=== PATIENT | female | born 1995 | race Caucasian/White ===

== ENCOUNTER 2018-02-13 09:08 | Emergency (ER) | payer OTHER ==
[2018-02-13 09:20] VITALS: BP 103/56; PULSE 94; TEMP 97.8; BMI 20.6
[2018-02-13] MEDS ORDERED: RANITIDINE HCL 150 MG TABLET (FP) PO ONE (10:03)
[2018-02-13] MEDS ORDERED: MAG HYDROX/AL HYDROX/SIMETH 30 ML UNIT-DOSE CUP PO ONE (10:03)
[2018-02-13] MEDS ORDERED: RANITIDINE HCL 150 MG TABLET (FP) ONE (10:07)
[2018-02-13] MEDS ORDERED: MAG HYDROX/AL HYDROX/SIMETH 30 ML UNIT-DOSE CUP ONE (10:08)
[2018-02-13 10:18] LABS: URINE APPEARANCE SLCLOUDY; URINE BILIRUBIN NEGATIVE (<2.0 mg/dL); URINE COLOR YELLOW; URINE GLUCOSE (UA) NEGATIVE (NEGATIVE); URINE KETONE 1+ (NEGATIVE); URINE LEUK ESTERASE TRACE (NEGATIVE); URINE NITRITE NEGATIVE (NEGATIVE); URINE UROBILINOGEN 4.0 E.U/dl mg/dL (0.2-1.0)
[2018-02-13 10:19] LABS: URINE PROTEIN 1+ (NEGATIVE)
[2018-02-13 10:26] LABS: HCG,QUALITATIVE URINE Negative
[2018-02-13 10:27] LABS: EPI CELLS FEW /HPF (FEW); URINE BACTERIA MANY /hpf (NONE SEEN); URINE HYALINE CAST 2 /lpf; URINE MUCUS MANY
--- NOTE | 2018-02-13 10:35 | PDOC ---
History of Present Illness - General Chief Complaint: Nausea Stated Complaint: ABD PAIN Time Seen by Provider: 02/13/18 09:58 History Source: Patient Exam Limitations: No Limitations - History of Present Illness Travel History: No Initial Comments: 02/13/18 10:30 22 yr female with c/o mid abd pain after eating meal with butter last night, neg nvd neg fever, pt has had this pain before, no back pain . pt denies urinary complaints LMP 3 weeks ago. Past History - Past Medical History Allergies/Adverse Reactions: Allergies Allergy/AdvReac Type Severity Reaction Status Date / Time No Known Allergies Allergy Verified 02/13/18 09:50 Home Medications: Ambulatory Orders Famotidine 20 mg PO DAILY #14 tablet 02/13/18 COPD: No DVT: No GI Disorders: Yes (SIGMOID VULVULUS) - Surgical History Abdominal Surgery: Yes (colectomy 2016) - Immunization History Immunization Up to Date: Yes - Suicide/Smoking/Psychosocial Hx Smoking History: Never smoked Have you smoked in the past 12 months: No Number of Cigarettes Smoked Daily: 0 Hx Alcohol Use: No Drug/Substance Use Hx: No Substance Use Type: None Hx Substance Use Treatment: No Review of Systems - Review of Systems Able to Perform ROS?: Yes Is the patient limited Romanian proficient: No Constitutional: No: Symptoms Reported, Unintentional Wgt. Loss HEENTM: No: Symptoms Reported Respiratory: No: Symptoms reported Cardiac (ROS): No: Symptoms Reported ABD/GI: Yes: Symptoms Reported. No: Abdominal Distended, Constipated, Diarrhea , Difficulty Swallowing, Nausea, Poor Appetite, Vomiting, Indigestion, Abdominal cramping : No: Symptoms Reported Musculoskeletal: No: Symptoms Reported *Physical Exam - Vital Signs Last Vital Signs Temp Pulse Resp BP Pulse Ox 97.8 F 94 H 16 103/56 L 99 02/13/18 09:15 02/13/18 09:15 02/13/18 09:15 02/13/18 09:15 02/13/18 09:15 - Physical Exam General Appearance: Yes: Nourished, Appropriately Dressed HEENT: positive: EOMI, MURRAY Neck: positive: Supple. negative: Tender Respiratory/Chest: positive: Lungs Clear, Normal Breath Sounds Cardiovascular: positive: Regular Rhythm, Regular Rate Gastrointestinal/Abdominal: positive: Normal Bowel Sounds, Soft. negative: Tender Lymphatic: negative: Adenopathy Musculoskeletal: positive: Normal Inspection Extremity: positive: Normal Capillary Refill, Normal Inspection, Normal Range of Motion Integumentary: positive: Normal Color, Dry, Warm Neurologic: positive: Fully Oriented, Alert, Normal Mood/Affect, Normal Response , Motor Strength 09/24 ED Treatment Course - ADDITIONAL ORDERS Additional order review: Laboratory Results 02/13/18 10:03 Urine Color Yellow Urine Appearance Slcloudy Urine pH 6.0 Ur Specific [place] 1.026 Urine Protein 1+ H Urine Glucose (UA) Negative Urine Ketones 1+ H Urine Blood 1+ H Urine Nitrite Negative Urine Bilirubin Negative Urine Urobilinogen 4.0 e.u/dl H Ur Leukocyte Esterase Trace Urine WBC (Auto) 17 Urine RBC (Auto) <1 Ur Epithelial Cells Few Urine Bacteria Many Hyaline Casts 2 Urine Mucus Many Urine HCG, Qual Negative - Medications Given in the ED: ED Medications Discontinued Medications Generic Name Dose Route Start Last Admin Trade Name Francoq PRN Reason Stop Dose Admin Al Hydroxide/Mg Hydroxide 30 ml 02/13/18 10:03 02/13/18 10:08 Mylanta Oral Suspension - PO 02/13/18 10:04 30 ml ONCE ONE Administration Ranitidine HCl 300 mg 02/13/18 10:03 02/13/18 10:08 Zantac - PO 02/13/18 10:04 300 mg ONCE ONE Administration Medical Decision Making - Medical Decision Making 02/13/18 10:31 cc: mid abd pain on and off for a few months had last night as well no meds taken [employer] no fever well appearing no distress abd non tender on exam pt states pain has occurred on and off in the past ususally goes away on own or after drinking water, pain resolves will check UA maalox and zantac 02/13/18 10:35 UA negative will dc home with supportive care and strict follow up with GI 02/13/18 10:36 *DC/Admit/Observation/Transfer Diagnosis at time of Disposition: Gastritis Qualifiers: Gastritis type: other gastritis Chronicity: acute Gastritis bleeding: without bleeding Qualified Code(s): K29.00 - Acute gastritis without bleeding - Discharge Dispostion Disposition: HOME Condition at time of disposition: Good - Prescriptions Prescriptions: Famotidine 20 mg PO DAILY #14 tablet - Referrals Referrals: Margaret Fay MD [Staff Physician] - - Patient Instructions Additional Instructions: follow with the rehab specialist for follow up bland diet as tolerated plain rice, bananas, toast applesauce avoid fatty or spicy foods take the pepcid daily return if any worsening symptoms - Post Discharge Activity
== END 2018-02-13 10:46 | disposition home or self-care (01) ==
LOC: JERFT 09:08
DX: K29.70 Gastritis, unspecified, without bleeding (principal)
CPT/HCPCS: 81003; 81015; 84703; 99281-25

== ENCOUNTER 2018-03-23 21:28 | Emergency (ER) | payer OTHER ==
[2018-03-23 21:33] VITALS: TEMP 99.5; BMI 21.1
[2018-03-23] MEDS ORDERED: IBUPROFEN 400 MG TABLET (FP) PO ONE ×2 (22:21→22:44)
[2018-03-23 22:38] LABS: BASO % 0.6 % (0-2.0); HEMATOCRIT 40.9 % (32.4-45.2); HEMOGLOBIN 13.6 GM/dL (10.7-15.3); LYMPH % 11.9 % (8-40); MCHC 33.1 g/dl (32.0-36.0); MEAN CELL VOLUME 90.7 fl (80-96); MEAN PLT VOLUME 9.7 fl (7.5-11.1); MONO % 7.2 % (3.8-10.2); NEUT % 80.3 % (42.8-82.8); PLATELET COUNT 229 K/MM3 (134-434); RBC 4.51 M/mm3 (3.60-5.2); RDW 12.3 % (11.6-15.6); WHITE BLOOD COUNT 12.5 K/mm3 (4.0-10.0)
--- NOTE | 2018-03-23 22:38 | PDOC ---
History of Present Illness - General Chief Complaint: Cold Symptoms Stated Complaint: COLD SYMPTOMS Time Seen by Provider: 03/23/18 21:53 History Source: Patient, Old Records Exam Limitations: No Limitations - History of Present Illness Travel History: No Initial Comments: 03/23/18 22:55 HISTORY OF PRESENT ILLNESS: 22-year-old female with past medical history of sigmoid volvulus status post surgical reduction 2016, who presents emergency Department with 1 week of fevers, sore throat and abdominal pain. Patient reports the pain is different than her volvulus. Patient states she's been taking Tylenol to help with the pain which is had good relief of symptoms. Patient denies any dizziness, blurry vision, chest pain, shortness of breath, nausea, vomiting, diarrhea, dysuria, vaginal discharge or vaginal bleeding. No recent travel or sick contacts. PAST MEDICAL HISTORY: see hpi SURGICAL HISTORY: see hpi ALLERGIES: No known drug allergies REVIEW OF SYSTEMS General/Constitutional: +fever. Denies chills. Denies weakness, weight change. HEENT: Denies change in vision. Denies ear pain or discharge. +sore throat. Cardiovascular: Denies chest pain or shortness of breath. Respiratory: Denies cough, wheezing, or hemoptysis. Gastrointestinal: Denies nausea, vomiting, diarrhea or constipation. Denies rectal bleeding. Genitourinary: Denies dysuria, frequency, or change in urination. Musculoskeletal: Denies joint or muscle swelling or pain. Denies neck or back pain. Skin and breasts: Denies rash or easy bruising. Neurologic: Bitemporal headache. Denies vertigo, loss of consciousness, or loss of sensation. Psychiatric: Denies depression or anxiety. Endocrine: Denies increased thirst. Denies abnormal weight change. Hematologic/Lymphatic: Denies anemia, easy bleeding, or history of blood clots. Allergic/Immunologic: Denies hives or skin allergy. Denies latex allergy. PHYSICAL EXAM General Appearance: Well-appearing, appropriately dressed. No apparent distress , no intoxication. HEENT: EOMI, PERRLA, normal ENT inspection, normal voice, TMs normal, pharynx normal. No conjunctival pallor. No photophobia, scleral icterus. Neck: Supple. Trachea midline. No tenderness, rigidity, carotid bruit, stridor , lymphadenopathy, or thyromegaly. Respiratory/Chest: Lungs CTAB. No shortness of breath, chest tenderness, respiratory distress, accessory muscle use. No crackles, rales, rhonchi, stridor , wheezing, dullness Cardiovascular: Tachycardic regular rhythm. S1, S2. No JVD, murmur, bradycardia. Vascular Pulses: Dorsalis-Pedis (R): 2+, Dorsalis-Pedis (L): 2+ Gastrointestinal/Abdominal: Normal bowel sounds. Abdomen soft, non-distended. RLQ tenderness. No rebound tenderness. No organomegaly, pulsatile mass, guarding , hernia, hepatomegaly, splenomegaly. Lymphatic: No adenopathy, tenderness. Musculoskeletal/Extremities: Normal inspection. FROM of all extremities, normal capillary refill. Pelvis Stable. No CVA tenderness. No tenderness to extremities, pedal edema, swelling, erythema or deformity. Integumentary: Appropriate color, dry, warm. No cyanosis, erythema, jaundice or rash Neurologic: biomedical photographer II-XII intact. Fully oriented, alert. Appropriate mood/affect. Motor strength 5/5. No appreciable EOM palsy, facial droop or sensory deficit. Past History - Past Medical History Allergies/Adverse Reactions: Allergies Allergy/AdvReac Type Severity Reaction Status Date / Time No Known Allergies Allergy Verified 03/23/18 21:32 Home Medications: Ambulatory Orders Famotidine 20 mg PO DAILY #14 tablet 02/13/18 Cephalexin Monohydrate [Keflex -] 500 mg PO BID #14 capsule 03/24/18 COPD: No DVT: No GI Disorders: Yes (SIGMOID VULVULUS) - Surgical History Abdominal Surgery: Yes (colectomy 2016) - Immunization History Immunization Up to Date: Yes - Suicide/Smoking/Psychosocial Hx Smoking History: Never smoked Have you smoked in the past 12 months: No Number of Cigarettes Smoked Daily: 0 Hx Alcohol Use: No Drug/Substance Use Hx: No Substance Use Type: None Hx Substance Use Treatment: No *Physical Exam - Vital Signs Last Vital Signs Temp Pulse Resp BP Pulse Ox 99.5 F 110 H 18 122/73 99 03/23/18 21:30 03/23/18 21:30 03/23/18 21:30 03/23/18 21:30 03/23/18 21:30 ED Treatment Course - LABORATORY CBC & Chemistry Diagram: 03/23/18 22:21 03/23/18 22:21 - ADDITIONAL ORDERS Additional order review: 03/23/18 21:50 Influenza Types A,B Antigen - Final Nasopharyngeal Swab - Final Medical Decision Making - Medical Decision Making 03/23/18 23:04 A/P: 22-year-old female with 1 week of fevers, sore throat and abdominal pain Oropharynx clear without erythema, lesions or exudates Regular tachycardic rhythm. S1 and S2 present. No murmur, rub or gallop noted Abdomen soft nondistended Right lower quadrant tenderness. No rebound tenderness noted. Right lower quadrant guarding present DDX: Volvulus, appendicitis, streptococcal infection, sepsis, UTI, TOA Labs, urine, CAT scan, EKG, chest x-ray Motrin 800 mg orally now 03/24/18 01:03 CT as read by imaging transformation specialist: No bowel obstruction, colitis, free fluid or free air. Normal appendix containing air. Unremarkable pancreas, kidneys and gallbladder. Chest x-rays read by me: Cardiac silhouette is within normal limits. Angles clear. No focal infiltrates or consolidations noted. EKG: Sinus tachycardia rate of 115. Normal intervals noted. No skin changes present Laboratory testing reveals a WBC of 12.5. Urinalysis with 3+ leuk esterase and 112 WBCs. Rare epithelial cells. Lactic acid is 0.6. The patient dose of Rocephin here and to continue on Keflex as outpatient. *DC/Admit/Observation/Transfer Diagnosis at time of Disposition: UTI (urinary tract infection) Qualifiers: Urinary tract infection type: acute cystitis Hematuria presence: without hematuria Qualified Code(s): N30.00 - Acute cystitis without hematuria - Discharge Dispostion Disposition: HOME Condition at time of disposition: Stable Decision to Admit order: No - Prescriptions Prescriptions: Cephalexin Monohydrate [Keflex -] 500 mg PO BID #14 capsule - Referrals - Patient Instructions Additional Instructions: Rest, drink lots of fluids: Teas, water, soups Avoid contact with others until fevers and symptoms resolved Lots of handwashing and good hygiene Continue [id number] medications for symptomatic relief Tylenol or Motrin for fever and pain Continue all of antibiotics until completed Followup with private physician in one week for repeat urinalysis/reevaluation Return to emergency department for worsened symptoms, fevers, dehydration - Post Discharge Activity
[2018-03-23] MEDS ORDERED: SODIUM CHLORIDE 1,728 ML IV ONE (22:50)
[2018-03-23 23:03] LABS: ALBUMIN 4.1 g/dl (3.4-5.0); ALK PHOS 81 U/L (45-117); ANION GAP 8 MMOL/L (8-16); BLOOD UREA NITROGEN 7 mg/dL (7-18); CALCIUM 9.1 mg/dL (8.5-10.1); CHLORIDE 102 mmol/L (98-107); CO2 26 mmol/L (21-32); CREATININE 0.8 mg/dL (0.55-1.3); GLUCOSE,RANDOM 95 mg/dL (74-106); POTASSIUM 4.2 mmol/L (3.5-5.1); SGOT/AST 22 U/L (15-37); SGPT/ALT 20 U/L (13-61); SODIUM 136 mmol/L (136-145); TOT PROT 7.4 g/dl (6.4-8.2)
[2018-03-23 23:07] LABS: INR 1.3 (0.83-1.09); PROTHROMBIN TIME (PATIENT) 15.4 SEC (9.7-13.0)
[2018-03-23 23:13] LABS: URINE APPEARANCE SLCLOUDY; URINE BILIRUBIN NEGATIVE (<2.0 mg/dL); URINE COLOR LTYELLOW; URINE GLUCOSE (UA) NEGATIVE (NEGATIVE); URINE KETONE NEGATIVE (NEGATIVE); URINE LEUK ESTERASE 3+ (NEGATIVE); URINE NITRITE POSITIVE (NEGATIVE); URINE PROTEIN 1+ (NEGATIVE); URINE UROBILINOGEN NEGATIVE mg/dL (0.2-1.0)
[2018-03-23 23:21] LABS: HCG,QUALITATIVE URINE Negative
[2018-03-23 23:25] LABS: VENOUS PH 7.43 (7.32-7.42)
[2018-03-23 23:26] LABS: VENOUS PC02 38.8 mmHg (38-52); VENOUS PO2 19.4 mmHg (28-48)
[2018-03-23 23:28] LABS: EPI CELLS RARE /HPF (FEW)
[2018-03-23] MEDS ORDERED: CEFTRIAXONE 1,000 MG in DEXTROSE 5%-WATER - 50 ML IVPB ONE (23:37)
[2018-03-23] MEDS ORDERED: CEFTRIAXONE 1 GM/50 ML BAG ONE (23:45)
[2018-03-24 01:22] VITALS: BP 93/44; PULSE 96
--- NOTE | 2018-03-24 10:47 | EKG ---
Test Reason : Blood Pressure : / mmHG Vent. Rate : 115 BPM Atrial Rate : 115 BPM P-R Int : 130 ms QRS Dur : 084 ms QT Int : 318 ms P-R-T Axes : 053 052 024 degrees QTc Int : 439 ms SINUS TACHYCARDIA NO PREVIOUS ECGS AVAILABLE Confirmed by THA STONE MD ([id number]) on 03/24/2018 10:46:53 AM Referred By: Confirmed By:THA STONE MD
== END 2018-03-24 01:56 | disposition home or self-care (01) ==
LOC: JER 21:28
PROC: 3E0337Z Introduction of Electrolytic and Water Balance Substance into Peripheral Vein, Percutaneous Approach (ICD-10-PCS; principal; 2018-03-23)
PROC: 3E0337Z Introduction of Electrolytic and Water Balance Substance into Peripheral Vein, Percutaneous Approach (ICD-10-PCS; 2018-03-23)
PROC: 3E03329 Introduction of Other Anti-infective into Peripheral Vein, Percutaneous Approach (ICD-10-PCS; 2018-03-23)
DX: N30.00 Acute cystitis without hematuria (principal)
CPT/HCPCS: 36415; 71045-TC-FY; 74177-TC; 80053; 81003; 81015; 82803; 83605; 83690; 84484; 84703; 85025; 85610; 87040; 87070; 87086; 87186; 87430; 87804; 93005; 93010; 99282-25; J7030

== ENCOUNTER 2019-02-02 12:29 | Emergency (ER) | payer OTHER ==
[2019-02-02 12:42] VITALS: BP 100/61; PULSE 84; TEMP 98.1; BMI 21.2
[2019-02-02] MEDS ORDERED: ERYTHROMYCIN 0.5% OPHTHALMIC OINTMENT 3.5 GM TUBE OS ONE (12:51)
--- NOTE | 2019-02-02 12:53 | PDOC ---
History of Present Illness - General Chief Complaint: Eye Problem Stated Complaint: LT EYE PROBLEM Time Seen by Provider: 02/02/19 12:43 History Source: Patient Exam Limitations: No Limitations Past History - Travel Traveled outside of the country in the last 30 days: No Close contact w/someone who was outside of country & ill: No - Past Medical History Allergies/Adverse Reactions: Allergies Allergy/AdvReac Type Severity Reaction Status Date / Time No Known Allergies Allergy Verified 02/02/19 12:42 Home Medications: Ambulatory Orders Famotidine 20 mg PO DAILY #14 tablet 02/13/18 Cephalexin Monohydrate [Keflex -] 500 mg PO BID #14 capsule 03/24/18 Erythromycin 0.5% Eye Ointment [Erythromycin 0.5% Eye Ointment -] 1 applic OS TID #1 tube 02/02/19 COPD: No DVT: No GI Disorders: Yes (SIGMOID VULVULUS) - Surgical History Abdominal Surgery: Yes (colectomy 2016) - Immunization History Immunization Up to Date: Yes - Suicide/Smoking/Psychosocial Hx Smoking History: Never smoked Have you smoked in the past 12 months: No Number of Cigarettes Smoked Daily: 0 Information on smoking cessation initiated: No Hx Alcohol Use: No Drug/Substance Use Hx: No Substance Use Type: None Hx Substance Use Treatment: No Review of Systems - Review of Systems Able to Perform ROS?: Yes Comments:: 02/02/19 12:48 CONSTITUTIONAL: Absent: fever, chills, diaphoresis, generalized weakness, malaise, loss of appetite HEENT: Present: L eye pain Absent: rhinorrhea, nasal congestion, throat pain, throat swelling, difficulty swallowing, mouth swelling, ear pain, visual Changes SKIN: Absent: rash, itching, pallor NEUROLOGIC: Absent: headache, focal weakness or paresthesias, dizziness, unsteady gait, seizure, mental status changes, bladder or bowel incontinence PSYCHIATRIC: Absent: anxiety, depression, suicidal or homicidal ideation, hallucinations. Is the patient limited Citizen Of [place] proficient: No *Physical Exam - Vital Signs Last Vital Signs Temp Pulse Resp BP Pulse Ox 98.1 F 84 16 100/61 100 02/02/19 12:39 02/02/19 12:39 02/02/19 12:39 02/02/19 12:39 02/02/19 12:39 - Physical Exam Comments: 02/02/19 12:49 GENERAL: The patient is awake, alert, and fully oriented, in no acute distress. HEAD: Normal with no signs of trauma. EYES: Pupils equal, round and reactive to light, extraocular movements intact, sclera anicteric, conjunctiva clear. Stye present to the L lower mid eyelid with minimal associated swelling. EXTREMITIES: Normal range of motion, no edema. NEUROLOGICAL: Normal speech, normal gait. PSYCH: Normal mood, normal affect. SKIN: Warm, Dry, normal turgor, no rashes or lesions noted. Medical Decision Making - Medical Decision Making 02/02/19 12:49 The patient is a 23 y/o F who presents to the ER for L eye pain. She notes that there may be an infection or ball on the lower L eye lid. Shes states it has been there for 3 days and is becoming painful. Denies visual changes, fevers, double vision, spots and floaters. A/P: On exam pt with a hordeolum to the LL lid No visual changes 20/20 OU Erythromycin ointment now; rx sent to pharmacy Recommend symptomatic relief Ophthalmology follow up given DC home I discussed the physical exam findings, ancillary test results and final diagnoses with the patient. I answered all of the patient's questions. The patient was satisfied with the care received and felt comfortable with the discharge plan and treatment plan. The Patient agrees to follow up with the primary care physician/specialist within 24-72 hours. Return precautions were given. *DC/Admit/Observation/Transfer Diagnosis at time of Disposition: Hordeolum externum (stye) Qualifiers: Laterality: left Eyelid: lower Qualified Code(s): H00.015 - Hordeolum externum left lower eyelid - Discharge Dispostion Disposition: HOME Condition at time of disposition: Stable Decision to Admit order: No - Referrals Referrals: Evie Bravo MD [Staff Physician] - - Patient Instructions Printed Discharge Instructions: DI for Hordeolum Additional Instructions: You have a stye to your L eye Please use erythromycin ointment twice a day to the affected eye for one week. Apply warm compresses to the area 3-4 times a day Please wash her hands frequently Do not wear contact lenses until your infection clears Follow up with ophthalmology if her symptoms do not improve within a week. Return to the ER for visual changes, blurry vision, or any new or worsening symptoms. - Post Discharge Activity Forms/Work/School Notes: Back to Work
[2019-02-02] MEDS ORDERED: ERYTHROMYCIN 0.5% OPHTHALMIC OINTMENT 3.5 GM TUBE ONE (12:57)
== END 2019-02-02 13:11 | disposition home or self-care (01) ==
LOC: JERFT 12:29
DX: H00.015 Hordeolum externum left lower eyelid (principal)
CPT/HCPCS: 99281-25

== ENCOUNTER 2020-02-26 09:11 | Emergency (ER) | payer OTHER ==
--- NOTE | 2020-02-26 09:33 | PDOC ---
Attending Attestation - Resident Resident Name: Lori Malik - ED Attending Attestation I have performed the following: I have examined & evaluated the patient, The case was reviewed & discussed with the resident, I agree w/resident's findings & plan, Exceptions are as noted - HPI HPI: 24 yo F with history of bowel obstruction presents with L-sided lower abdominal pain that started at 2am. Pain originates in the LLQ, radiates up to her mid- back. Described as sharp, waxes and wanes. She is taking NSAIDs without relief. +Chills, headache. No vaginal discharge, hematuria, dysuria, cough. - Physicial Exam PE: GENERAL: Awake, alert, and fully oriented, in no acute distress. Nontoxic. HEAD: No signs of trauma EYES: PERRLA, EOMI, sclera anicteric, conjunctiva clear ENT: Auricles normal inspection, hearing grossly normal, nares patent, oropharynx clear without exudates. Moist mucosa NECK: Normal ROM, supple, no lymphadenopathy, JVD, or masses LUNGS: Breath sounds equal, clear to auscultation bilaterally. No wheezes, and no crackles HEART: Regular rate and rhythm, normal S1 and S2, no murmurs, rubs or gallops ABDOMEN: Soft, +moderate LLQ tenderness, normoactive bowel sounds. No guarding, no rebound. No masses. +L CVAT EXTREMITIES: Normal range of motion, no edema. No clubbing or cyanosis. No cords, erythema, or tenderness NEUROLOGICAL: Cranial nerves II through XII grossly intact. Normal speech, normal gait. Motor and sensation intact SKIN: Warm, dry, normal turgor, no rashes or lesions noted. - Medical Decision Making Pt with fever, L CVAT, cloudy urine. Suspected pyelonephritis. UA is positive. Rocephin given in ED. Will DC on PO abx. Discharge - Discharge Information Problems reviewed: Yes Clinical Impression/Diagnosis: Pyelonephritis Condition: Improved Disposition: HOME - Additional Discharge Information Prescriptions: Sulfamethoxazole/Trimethoprim [Bactrim Ds -] 1 tab PO BID #20 tablet - Follow up/Referral - Patient Discharge Instructions Patient Printed Discharge Instructions: DI for Kidney Infection Additional Instructions: You have pyelonephritis (kidney infection). You were given an antibiotic through the IV here and you have a prescription for an antibiotic called Bactrim. Take it twice a day for 10 days. Drink plenty of water. You can take Tylenol or Advil for the fevers. You should also make an appointment with your doctor this week. Come back to the ER if you have worsening pain, continue to have fevers after 3 days of taking the medications, you are vomiting or if any new or concerning symptom develops. Thank you - Post Discharge Activity
[2020-02-26] MEDS ORDERED: LACTATED RINGERS SOLUTION 1000 ML INFUS.BAG IV ONE (09:36)
[2020-02-26] MEDS ORDERED: ACETAMINOPHEN 1000 MG/100 ML VIAL (NON FORMULARY) IVPB ONE (09:36)
--- NOTE | 2020-02-26 09:39 | PDOC ---
History of Present Illness - General Chief Complaint: Pain, Acute Stated Complaint: STOMACH PAIN Time Seen by Provider: 02/26/20 09:23 History Source: Patient Exam Limitations: No Limitations - History of Present Illness Initial Comments: 02/26/20 09:41 24y F with no significant PMH, PSH of obstructed bowel presenting to the ER for L sided abdominal pain since 2am today. Pain is in the LLQ and LUQ, sharp and nonradiating. She has been taking Advil without relief. Associated with chills and headache. Denies n/v/d, constipation, vaginal discharge, hematuria, dysuria, cough, congestion, chest pain, sob. She is sexually active with one half-way partner, no history of STDs. PMD: PMH: none PSH: obstruction repair? Meds: one Allergies: nkda 02/26/20 10:45 02/26/20 10:45 Past History - Medical History Allergies/Adverse Reactions: Allergies Allergy/AdvReac Type Severity Reaction Status Date / Time No Known Allergies Allergy Verified 02/26/20 09:17 Home Medications: Ambulatory Orders Sulfamethoxazole/Trimethoprim [Bactrim Ds -] 1 tab PO BID #20 tablet 02/26/20 COPD: No DVT: No GI Disorders: Yes (SIGMOID VULVULUS) - Surgical History Abdominal Surgery: Yes (colectomy 2016) - Reproductive History Is Patient Now?: No - Immunization History Immunization Up to Date: Yes - Psycho-Social/Smoking History Smoking History: Never smoked Have you smoked in the past 12 months: No Number of Cigarettes Smoked Daily: 0 - Substance Abuse Hx (Audit-C & DAST Scrn) How often the patient has a drink containing alcohol: Never Score: In Men: 4 or > Positive; In Women: 3 or > Positive: 0 Screen Result (Pos requires Nsg. Audit-10AR): Negative In the last yr the pt used illegal drug/Rx for NonMed reason: No Score: Yes response is considered Positive: 0 Screen Result (Positive result requires Nsg. DAST-10): Negative Review of Systems - Review of Systems Constitutional: Yes: Chills, Malaise HEENTM: No: Symptoms Reported Respiratory: No: Symptoms reported Cardiac (ROS): No: Symptoms Reported ABD/GI: Yes: See HPI : No: Symptoms Reported Musculoskeletal: No: Symptoms Reported Integumentary: No: Symptoms Reported Neurological: No: Symptoms reported *Physical Exam - Vital Signs Last Vital Signs Temp Pulse Resp BP Pulse Ox 98.5 F 127 H 20 106/61 100 02/26/20 09:17 02/26/20 09:17 02/26/20 09:17 02/26/20 09:17 02/26/20 09:17 - Physical Exam General Appearance: Yes: Nourished, Appropriately Dressed. No: Apparent Dis tress HEENT: positive: EOMI, MURRAY, Normal ENT Inspection Neck: positive: Trachea midline, Supple. negative: Lymphadenopathy (R), Lymphadenopathy (L) Respiratory/Chest: positive: Lungs Clear, Normal Breath Sounds. negative: Rales, Rhonchi, Stridor, Wheezing Cardiovascular: positive: Regular Rhythm, S1, S2, Tachycardia. negative: Edema, JVD, Murmur Vascular Pulses: Dorsalis-Pedis (R): 2+, Doralis-Pedis (L): 2+ Female Pelvic Exam: positive: normal external exam, cervical os closed, normal adnexa, discharge. negative: CMT, lesions, adnexal tenderness, vaginal bleeding Gastrointestinal/Abdominal: positive: Normal Bowel Sounds, Soft. negative: Tender Musculoskeletal: positive: CVA Tenderness (L). negative: CVA Tenderness (R) Extremity: positive: Normal Capillary Refill. negative: Pedal Edema, Swelling Integumentary: positive: Normal Color, Dry, Warm Neurologic: positive: spoke maker II-XII NML intact, Fully Oriented, Alert, Normal Mood/Affect, Normal Response, Motor Strength 5/5 ED Treatment Course - LABORATORY CBC & Chemistry Diagram: 02/26/20 09:39 02/26/20 09:30 - RADIOLOGY Radiology Studies Ordered: Category Date Time Status CHEST X-RAY PORTABLE* [RAD] Stat Radiology 02/26/20 09:35 Ordered Medical Decision Making - Medical Decision Making 02/26/20 10:44 24y F presenting with chills and L sided abdominal pain vitals: febrile, tachcyardic pe: well appearing, mild LUQ and llq tenderness, L CVA tenderness. no CMT, no adnexal tenderness. white vaginal discharge, normal cervix. rest of exam normal. ddx includes pyelonephritis, toa, appendicitis, pid, colitis, cholecystitis, ectopic -labs, cultures, ua, ucx, preg, gc -fluids, ofirmev -tvus 02/26/20 10:46 UA positive for infection, wbc 13. likely pyelonephritis. will give rocephin here. pending TVUS 02/26/20 12:55 TVUS: small ff in [place], echogenic debris in bladder. no toa. Discussed diagnosis and results with pt. rx for Bactrim sent to pharmacy. referral to [facility] provided. return precautions discussed. pt is well appearing, tolerating po, making urine. dc home Discharge - Discharge Information Problems reviewed: Yes Clinical Impression/Diagnosis: Pyelonephritis Condition: Improved Disposition: HOME - Admission No - Additional Discharge Information Prescriptions: Sulfamethoxazole/Trimethoprim [Bactrim Ds -] 1 tab PO BID #20 tablet - Follow up/Referral Referrals: [facility] [Provider Group] - Patient Discharge Instructions Patient Printed Discharge Instructions: DI for Kidney Infection Additional Instructions: You have pyelonephritis (kidney infection). You were given an antibiotic through the IV here and you have a prescription for an antibiotic called Bactrim. Take it twice a day for 10 days. Drink plenty of water. You can take Tylenol or Advil for the fevers. You should also make an appointment with your doctor this week, a referral to the primary care clinic has been provided. Come back to the ER if you have worsening pain, continue to have fevers after 3 days of taking the medications, you are vomiting or if any new or concerning symptom develops. Thank you - Post Discharge Activity
[2020-02-26] MEDS ORDERED: ACETAMINOPHEN INJECTION 100 ML IVPB ONE (09:42)
[2020-02-26 10:07] LABS: BASO % 0.4 % (0-2.0); EOS % 0.2 % (0-4.5); HEMOGLOBIN 14.1 GM/dL (10.7-15.3); LYMPH % 4.9 % (8-40); MCH 31.1 pg (25.7-33.7); MCHC 33.6 g/dl (32.0-36.0); MEAN CELL VOLUME 92.7 fl (80-96); MEAN PLT VOLUME 9.4 fl (7.5-11.1); MONO % 2.8 % (3.8-10.2); NEUT % 91.7 % (42.8-82.8); PLATELET COUNT 235 K/MM3 (134-434); RBC 4.53 M/mm3 (3.60-5.2); RDW 13.2 % (11.6-15.6)
[2020-02-26 10:13] LABS: INR 1.06 (0.83-1.09); PROTHROMBIN TIME (PATIENT) 12.5 SEC (9.7-13.0)
[2020-02-26 10:16] LABS: ACTIVATED PTT 26.5 SECONDS (25.2-36.5)
[2020-02-26 10:33] LABS: ALBUMIN 3.9 g/dl (3.4-5.0); BILIRUBIN,TOTAL 0.8 mg/dL (0.2-1); BLOOD UREA NITROGEN 5.8 mg/dL (7-18); CALCIUM 9.1 mg/dL (8.5-10.1); CREATININE 0.8 mg/dL (0.55-1.3); POTASSIUM 3.8 mmol/L (3.5-5.1); TOT PROT 7.6 g/dl (6.4-8.2)
[2020-02-26 10:34] LABS: EPI CELLS 8 /uL (0-25.1); HYALINE CASTS 1 /uL (0-3.1); PH,URINE 5.5 (5.0-8.0); URINE APPEARANCE CLOUDY; URINE BACTERIA >9,000 /uL (0-1359); URINE BILIRUBIN NEGATIVE (NEGATIVE); URINE COLOR YELLOW; URINE GLUCOSE (UA) NEGATIVE (NEGATIVE); URINE KETONE NEGATIVE (NEGATIVE); URINE LEUK ESTERASE 3+ (NEGATIVE); URINE NITRITE NEGATIVE (NEGATIVE); URINE PROTEIN TRACE (NEGATIVE); URINE RBC 11 /uL (0-23.9); URINE UROBILINOGEN 0.2 mg/dL (0.2-1.0); URINE WBC 1055 /uL (0-25.8)
[2020-02-26] MEDS ORDERED: CEFTRIAXONE 1 GM in DEXTROSE 5%-WATER - 100 ML IVPB ONE (10:36)
[2020-02-26] MEDS ORDERED: CEFTRIAXONE 1 GM/50 ML BAG ONE (10:43)
[2020-02-26 11:09] LABS: ANISOCYTOSIS 0; MACROCYTOSIS 0; PLATELET ESTIMATE NORMAL
[2020-02-26 12:02] VITALS: BP 105/74; PULSE 106; TEMP 99
--- NOTE | 2020-02-26 13:39 | EKG ---
Test Reason : Blood Pressure : / mmHG Vent. Rate : 121 BPM Atrial Rate : 121 BPM P-R Int : 124 ms QRS Dur : 082 ms QT Int : 294 ms P-R-T Axes : 034 029 030 degrees QTc Int : 417 ms SINUS TACHYCARDIA OTHERWISE NORMAL ECG WHEN COMPARED WITH ECG OF 23-MAR-2018 23:38, NONSPECIFIC T WAVE ABNORMALITY NO LONGER EVIDENT IN ANTERIOR LEADS Confirmed by Carlos Manuel Ramirez MD ([id number]) on 02/26/2020 1:39:10 PM Referred By: Confirmed By:Carlos Manuel Ramirez MD
== END 2020-02-26 13:07 | disposition home or self-care (01) ==
LOC: JER 09:11
PROC: 3E0333Z Introduction of Anti-inflammatory into Peripheral Vein, Percutaneous Approach (ICD-10-PCS; principal; 2020-02-26)
PROC: 3E033GC Introduction of Other Therapeutic Substance into Peripheral Vein, Percutaneous Approach (ICD-10-PCS; 2020-02-26)
DX: N10 Acute pyelonephritis (principal)
CPT/HCPCS: 36415; 71045-TC-FY; 76830-TC; 80053; 81003; 83605; 84703; 85025; 85610; 85730; 86850; 86900; 86901; 87040; 87086; 87186; 87491; 87591; 93005; 93010; 99285-25; J0131

== ENCOUNTER 2022-01-04 14:48 | Emergency (ER) | payer OTHER ==
[2022-01-04 15:50] VITALS: BP 93/64; PULSE 103; RESP 18; TEMP 98.4
[2022-01-04 18:18] LABS: EPI CELLS >36 /uL (0-25.1); HYALINE CASTS 1 /uL (0-3.1); PH,URINE 8.5 (5.0-8.0); URINE APPEARANCE TURBID; URINE BACTERIA 4137 /uL (0-1359); URINE BILIRUBIN NEGATIVE (NEGATIVE); URINE COLOR YELLOW; URINE GLUCOSE (UA) NEGATIVE (NEGATIVE); URINE KETONE NEGATIVE (NEGATIVE); URINE LEUK ESTERASE 1+ (NEGATIVE); URINE NITRITE NEGATIVE (NEGATIVE); URINE PROTEIN NEGATIVE (NEGATIVE); URINE RBC 11 /uL (0-23.9); URINE UROBILINOGEN 0.2 mg/dL (0.2-1.0); URINE WBC 32 /uL (0-25.8)
== END 2022-01-04 20:14 | disposition home or self-care (01) ==
LOC: JER 14:48
DX: O23.12 Infections of bladder in pregnancy, second trimester (principal); H01.004 Unspecified blepharitis left upper eyelid
CPT/HCPCS: 76815-TC; 81003; 87086; 99284-25